=== PATIENT | male | born 1940 | race Caucasian/White ===

== ENCOUNTER 2016-05-24 10:24 | Inpatient (IN) | payer OTHER ==
[~2016-05-24] VITALS: Ht 170.2 cm; Wt 79.1 kg
[~2016-05-24 10:24] MED LIST: AMLODIPINE BESY10 MG PO; ASPIRIN EC325 MG PO; DOCUSATE SODIU100 MG PO; DUONEB 2.5-0.5 M3 ML AEROSOL; ERGOCALCIF50000 UNIT PO; HYDROCODON-ACE1 EAC7 PO; KEFLEX500 MG PO; LEVOFLOXACIN750 MG PO; MYCOSTATIN 100,60 ML PO; NEURONTIN100 MG PO; NICOTINE PATCH1 EAC2 TD; NORVASC5 MG PO; PERCOCET 5/31 TABLET PO; PRAVASTATIN SOD20 MG PO; PROAIR HFA8.5 GM IH; TRANSDERM-SCO1 PATCH TD; VITAMIN D32000 UNI1 GT; ZOFRAN4 MG PO
[2016-05-24 10:51] LABS: BASE EXCESS 0.4 mEq/L (-3 to +3); BICARBONATE 23.1 mEq/L (22-26); PCO2 31 mm Hg (35-45); PO2 176 mm Hg (80-100); pH 7.48 (7.35-7.45)
[2016-05-24 10:52] LABS: COMMENTS - BLOOD GASES A+C+; DEVICE NRB; O2 FLOW 15 L/MIN; SITE LR; TOTAL RESP RATE 30 resp/min
[2016-05-24 10:55] LABS: MEAN PLAT.VOLUME 11.7 uM^3 (9.0-12.4); PLATELET COUNT 200 K/uL (156-360)
[2016-05-24 11:10] LABS: CHLORIDE 98 mEq/L (99-109); POTASSIUM 3.5 mEq/L (3.7-5.4); SODIUM 137 mEq/L (136-147)
[2016-05-24 11:12] LABS: GLUCOSE 149 mg/dL (70-99)
[2016-05-24 11:13] LABS: ANION GAP 14 MEQ/L (2-14)
[2016-05-24 11:14] LABS: TOTAL BILIRUBIN 0.5 mg/dL (0.0-1.0)
[2016-05-24 11:15] LABS: ALKALINE PHOSPHATASE 130 IU/L (3-129)
[2016-05-24 11:16] LABS: GFR ESTIMATE (CALCULATED) 23 mL/min/
[2016-05-24 11:17] LABS: UREA NITROGEN (BUN) 71 mg/dL (9-23)
[2016-05-24 11:19] LABS: TROP-I INTERPRETATION NEGATIVE; TROPONIN-I 0.05 ng/mL (0.0-0.30)
[2016-05-24 12:03] LABS: EOSINOPHIL (%) 0 % (0-5); HEMATOCRIT 39.1 % (38.0-50.0); IMMATURE GRANULOCYTE (%) 0.3 % (0.0-0.7); LYMPHOCYTE COUNT 18.7 K/uL (1.0-2.8); MCHC 32.7 G/DL (30.0-36.0); MCV 91.8 FL (86-99); MONOCYTE (%) 2.2 % (3-12); MONOCYTE COUNT 0.8 K/uL (0-0.8); NEUTROPHIL (%) 44.5 % (45-76); NEUTROPHIL COUNT 15.7 K/uL (1.8-6.4); RBC DIS.WIDTH-CV 13.7 % (11.8-14.6); RBC DIS.WIDTH-SD 44.9 % (39-53); RED BLOOD COUNT 4.26 M/uL (4.00-5.50); WHITE BLOOD COUNT 33.1 K/uL (4.1-10.2)
[2016-05-24] MEDS ORDERED: COUGH SYRU100 MG/5 M GT (12:28)
[2016-05-24] MEDS ORDERED: HYDRALAZINE HCL25 MG GT (12:30)
[2016-05-24] MEDS ORDERED: CLONIDINE HCL0.1 MG GT (12:31)
[2016-05-24] MEDS ORDERED: ASPIRIN325 MG GT (12:32)
[2016-05-24] MEDS ORDERED: METOCLOPRAM5 MG/5 ML GT (12:32)
[2016-05-24] MEDS ORDERED: CARVEDILOL25 MG GT (12:33)
[2016-05-24] MEDS ORDERED: MIRALAX255 GM GT (12:34)
[2016-05-24] MEDS ORDERED: SENNA8.6 MG GT (12:35)
[2016-05-24] MEDS ORDERED: HEPARIN SO5000 UNITS SC (12:36)
[2016-05-24] MEDS ORDERED: CITALOPRAM HBR20 MG GT (12:37)
[2016-05-24] MEDS ORDERED: VITAMIN D-32000 UNI2 GT (12:37)
[2016-05-24] MEDS ORDERED: ACETAMINOP160 MG/51 GT (12:38)
[2016-05-24] MEDS ORDERED: ATROVENT 00.5 MG/2.5 IH (12:39)
[2016-05-24] MEDS ORDERED: ALBUTEROL2.5 MG/3 M IH (12:39)
[2016-05-24] MEDS ORDERED: PROMETHAZINE HC25 MG PR (12:40)
[2016-05-24] MEDS ORDERED: MILK OF MAGN GT (12:41)
[2016-05-24] MEDS ORDERED: FLEET ENEMA-AD118 ML PR (12:42)
[2016-05-24] MEDS ORDERED: DULCOLAX10 MG PR (12:42)
[2016-05-24 13:45] LABS: EOSINOPHIL (%) 0 % (0-5); IMMATURE GRANULOCYTE (%) 0.2 % (0.0-0.7); IMMATURE GRANULOCYTE COUNT 0.6 K/uL; LYMPHOCYTE COUNT 14.6 K/uL (1.0-2.8); MEAN PLAT.VOLUME 11.7 uM^3 (9.0-12.4); MONOCYTE (%) 3.3 % (3-12); NEUTROPHIL (%) 48.2 % (45-76); NEUTROPHIL COUNT 14.6 K/uL (1.8-6.4); PLATELET COUNT 172 K/uL (156-360)
[2016-05-24 13:46] LABS: HEMATOCRIT 37.8 % (38.0-50.0); MCH 30.3 PG (29.0-34.0); MCHC 33.3 G/DL (30.0-36.0); MCV 90.9 FL (86-99); RBC DIS.WIDTH-CV 13.6 % (11.8-14.6); RBC DIS.WIDTH-SD 43.3 % (39-53); RED BLOOD COUNT 4.16 M/uL (4.00-5.50); WHITE BLOOD COUNT 30.3 K/uL (4.1-10.2)
[2016-05-24 13:57] LABS: CHLORIDE 101 mEq/L (99-109); POTASSIUM 3.6 mEq/L (3.7-5.4); SODIUM 138 mEq/L (136-147)
[2016-05-24 13:58] LABS: GLUCOSE 123 mg/dL (70-99)
[2016-05-24 14:00] LABS: ANION GAP 15 MEQ/L (2-14)
[2016-05-24 14:02] LABS: GFR ESTIMATE (CALCULATED) 24 mL/min/
[2016-05-24 14:03] LABS: UREA NITROGEN (BUN) 71 mg/dL (9-23)
[2016-05-24 15:35] VITALS: BP 183/85
[2016-05-24 16:36] VITALS: BP 183/85
[2016-05-24 16:42] LABS: ABS NEUTROPHIL COUNT 13.42; ANISOCYTOSIS 1+; BAND NEUTROPHILS 0.5 % (0-8.0); MACROCYTES OCC; PLAT.SUFFICIENCY ADEQUATE
[2016-05-24 19:00] VITALS: BP 160/70
[2016-05-25 00:25] VITALS: BP 140/60
[2016-05-25 04:00] VITALS: BP 146/65
[2016-05-25 05:28] LABS: METH RESISTANT S AUREUS PCR POSITIVE (NEGATIVE)
[2016-05-25 05:29] LABS: PROBE CHECK PASS
[2016-05-25 07:13] LABS: EOSINOPHIL (%) 0 % (0-5); HEMATOCRIT 30.8 % (38.0-50.0); IMMATURE GRANULOCYTE (%) 0.1 % (0.0-0.7); LYMPHOCYTE COUNT 8.8 K/uL (1.0-2.8); MCH 29.9 PG (29.0-34.0); MCHC 32.5 G/DL (30.0-36.0); MCV 91.9 FL (86-99); MONOCYTE (%) 0.8 % (3-12); MONOCYTE COUNT 0.1 K/uL (0-0.8); NEUTROPHIL (%) 47.9 % (45-76); NEUTROPHIL COUNT 8.3 K/uL (1.8-6.4); PLATELET COUNT 140 K/uL (156-360); RED BLOOD COUNT 3.35 M/uL (4.00-5.50)
[2016-05-25 07:14] LABS: WHITE BLOOD COUNT 17.2 K/uL (4.1-10.2)
[2016-05-25 07:32] LABS: ANION GAP 11 MEQ/L (2-14); CHLORIDE 99 MEQ/L (99-109); GFR ESTIMATE (CALCULATED) 23 mL/min/; GLUCOSE 148 mg/dL (70-99); POTASSIUM 3.9 MEQ/L (3.7-5.4); SAMPLE HEMOLYSIS CHECK 0; SAMPLE ICTERIC CHECK 0; SAMPLE LIPEMIA CHECK 0; SODIUM 135 MEQ/L (136-147); UREA NITROGEN (BUN) 71 mg/dL (9-23)
[2016-05-25 08:20] VITALS: BP 138/93
[2016-05-25 12:05] VITALS: BP 183/79
[2016-05-25 16:15] VITALS: BP 148/64
[2016-05-25 16:38] LABS: BASE EXCESS -1.4 mEq/L (-3 to +3); BICARBONATE 22.6 mEq/L (22-26); CARBOXY HGB 1.6 % (0-5); COMMENTS - BLOOD GASES C+A-N/A; DEVICE NASAL CANNULA; METHEMOGLOBIN 1.9 % (0-1.5); O2 FLOW 6 L/MIN; PCO2 34 mm Hg (35-45); PO2 49 mm Hg (80-100); SITE RR; TOTAL RESP RATE 22 resp/min; pH 7.43 (7.35-7.45)
[2016-05-25 19:30] VITALS: BP 151/67
[2016-05-26 00:25] VITALS: BP 138/60
[2016-05-26 03:48] VITALS: BP 156/65
[2016-05-26 06:57] LABS: EOSINOPHIL (%) 0 % (0-5); HEMATOCRIT 28.5 % (38.0-50.0); IMMATURE GRANULOCYTE (%) 0.3 % (0.0-0.7); IMMATURE GRANULOCYTE COUNT 0.1 K/uL; MCH 30.1 PG (29.0-34.0); MCV 91.3 FL (86-99); MEAN PLAT.VOLUME 11.8 uM^3 (9.0-12.4); MONOCYTE (%) 1.5 % (3-12); MONOCYTE COUNT 0.3 K/uL (0-0.8); NEUTROPHIL COUNT 7.8 K/uL (1.8-6.4); PLATELET COUNT 160 K/uL (156-360); RBC DIS.WIDTH-SD 46.5 % (39-53); RED BLOOD COUNT 3.12 M/uL (4.00-5.50); WHITE BLOOD COUNT 18.1 K/uL (4.1-10.2)
[2016-05-26 09:00] VITALS: BP 132/66
[2016-05-26 09:51] LABS: BASE EXCESS -3.7 mEq/L (-3 to +3); BICARBONATE 20.3 mEq/L (22-26); CARBOXY HGB 1.4 % (0-5); METHEMOGLOBIN 1.8 % (0-1.5); PO2 50 mm Hg (80-100)
[2016-05-26 09:52] LABS: COMMENTS - BLOOD GASES C+A-N/A; SITE LR
[2016-05-26 09:59] LABS: DEVICE ROOM AIR; FI02 21 %
[2016-05-26 10:00] LABS: PCO2 32 mm Hg (35-45); TOTAL RESP RATE 24 resp/min; pH 7.41 (7.35-7.45)
[2016-05-26 12:11] VITALS: BP 120/65
[2016-05-26 16:09] VITALS: BP 160/60
[2016-05-26 23:18] VITALS: BP 186/88
[2016-05-27 07:38] LABS: EOSINOPHIL (%) 0 % (0-5); IMMATURE GRANULOCYTE (%) 0.4 % (0.0-0.7); IMMATURE GRANULOCYTE COUNT 0.1 K/uL; LYMPHOCYTE COUNT 16.9 K/uL (1.0-2.8); MCH 30.4 PG (29.0-34.0); MCHC 32.9 G/DL (30.0-36.0); MCV 92.1 FL (86-99); MEAN PLAT.VOLUME 11.7 uM^3 (9.0-12.4); MONOCYTE (%) 0.7 % (3-12); MONOCYTE COUNT 0.2 K/uL (0-0.8); NEUTROPHIL (%) 37.6 % (45-76); NEUTROPHIL COUNT 10.4 K/uL (1.8-6.4); PLATELET COUNT 184 K/uL (156-360); RBC DIS.WIDTH-SD 46.5 % (39-53); RED BLOOD COUNT 3.69 M/uL (4.00-5.50)
[2016-05-27 07:41] LABS: WHITE BLOOD COUNT 27.6 K/uL (4.1-10.2)
[2016-05-27 07:57] LABS: ANION GAP 12 MEQ/L (2-14); CHLORIDE 102 MEQ/L (99-109); GFR ESTIMATE (CALCULATED) 25 mL/min/; GLUCOSE 161 mg/dL (70-99); POTASSIUM 3.7 MEQ/L (3.7-5.4); SAMPLE HEMOLYSIS CHECK 0; SAMPLE ICTERIC CHECK 0; SAMPLE LIPEMIA CHECK 0; SODIUM 133 MEQ/L (136-147); UREA NITROGEN (BUN) 68 mg/dL (9-23)
[2016-05-27 08:19] VITALS: BP 137/99
[2016-05-27 13:12] LABS: TROP-I INTERPRETATION NEGATIVE; TROPONIN-I 0.06 ng/mL (0.0-0.30)
[2016-05-27 16:52] VITALS: BP 142/82
[2016-05-27 16:54] VITALS: BP 208/98
[2016-05-27 22:51] VITALS: BP 190/95
[2016-05-28 08:35] VITALS: BP 156/84
[2016-05-28 16:01] VITALS: BP 192/74
[2016-05-28 17:09] VITALS: BP 174/78
[2016-05-28 23:03] VITALS: BP 178/82
[2016-05-29 07:11] LABS: HEMATOCRIT 27.3 % (38.0-50.0); MCH 31.1 PG (29.0-34.0); MCHC 34.1 G/DL (30.0-36.0); MCV 91.3 FL (86-99); MEAN PLAT.VOLUME 11.2 uM^3 (9.0-12.4); PLATELET COUNT 159 K/uL (156-360); RBC DIS.WIDTH-SD 46.6 % (39-53); RED BLOOD COUNT 2.99 M/uL (4.00-5.50); WHITE BLOOD COUNT 20.2 K/uL (4.1-10.2)
[2016-05-29 07:32] LABS: EOSINOPHIL (%) 0 % (0-5); IMMATURE GRANULOCYTE (%) 0.2 % (0.0-0.7); LYMPHOCYTE COUNT 12.9 K/uL (1.0-2.8); MONOCYTE (%) 3.5 % (3-12); MONOCYTE COUNT 0.7 K/uL (0-0.8); NEUTROPHIL (%) 32.3 % (45-76); NEUTROPHIL COUNT 6.5 K/uL (1.8-6.4)
[2016-05-29 07:38] LABS: ANION GAP 7 MEQ/L (2-14); CHLORIDE 106 MEQ/L (99-109); GFR ESTIMATE (CALCULATED) 28 mL/min/; POTASSIUM 3.3 MEQ/L (3.7-5.4); SAMPLE HEMOLYSIS CHECK 0; SAMPLE ICTERIC CHECK 0; SAMPLE LIPEMIA CHECK 0; SODIUM 135 MEQ/L (136-147); UREA NITROGEN (BUN) 56 mg/dL (9-23)
[2016-05-29 07:40] LABS: GLUCOSE 99 mg/dL (70-99)
[2016-05-29 18:33] VITALS: BP 165/74
[2016-05-29 23:06] VITALS: BP 176/77
[2016-05-30 08:44] LABS: ANION GAP 6 MEQ/L (2-14); CHLORIDE 110 MEQ/L (99-109); GFR ESTIMATE (CALCULATED) 29 mL/min/; GLUCOSE 84 mg/dL (70-99); POTASSIUM 3.6 MEQ/L (3.7-5.4); SAMPLE HEMOLYSIS CHECK 0; SAMPLE ICTERIC CHECK 0; SAMPLE LIPEMIA CHECK 0; SODIUM 140 MEQ/L (136-147); UREA NITROGEN (BUN) 48 mg/dL (9-23)
[2016-05-30 09:04] VITALS: BP 172/83
[2016-05-30 17:55] VITALS: BP 185/82
[2016-05-31 00:53] VITALS: BP 101/75
[2016-05-31 04:00] VITALS: BP 122/78
[2016-05-31 07:55] LABS: NRBC (%) 0.1 /100 WBC (0-0)
[2016-05-31 08:21] LABS: ANION GAP 6 MEQ/L (2-14); CHLORIDE 108 MEQ/L (99-109); EOSINOPHIL (%) 0.4 % (0-5); EOSINOPHIL COUNT 0.1 K/uL (0-0.3); GFR ESTIMATE (CALCULATED) 31 mL/min/; GLUCOSE 96 mg/dL (70-99); HEMATOCRIT 29.8 % (38.0-50.0); IMMATURE GRANULOCYTE (%) 0.4 % (0.0-0.7); IMMATURE GRANULOCYTE COUNT 0.1 K/uL; LYMPHOCYTE COUNT 16.6 K/uL (1.0-2.8); MCH 30.9 PG (29.0-34.0); MCHC 33.6 G/DL (30.0-36.0); MONOCYTE (%) 2.4 % (3-12); MONOCYTE COUNT 0.7 K/uL (0-0.8); NEUTROPHIL (%) 34.9 % (45-76); NEUTROPHIL COUNT 9.3 K/uL (1.8-6.4); PLATELET COUNT 185 K/uL (156-360); POTASSIUM 3.6 MEQ/L (3.7-5.4); RBC DIS.WIDTH-CV 13.9 % (11.8-14.6); RBC DIS.WIDTH-SD 46.3 % (39-53); RED BLOOD COUNT 3.24 M/uL (4.00-5.50); SAMPLE HEMOLYSIS CHECK 0; SAMPLE ICTERIC CHECK 0; SAMPLE LIPEMIA CHECK 0; SODIUM 138 MEQ/L (136-147); UREA NITROGEN (BUN) 42 mg/dL (9-23)
[2016-05-31 08:24] LABS: WHITE BLOOD COUNT 26.8 K/uL (4.1-10.2)
[2016-05-31 08:41] VITALS: BP 178/77
[2016-05-31 12:59] VITALS: BP 153/86
[2016-05-31 21:19] VITALS: BP 128/56
[2016-06-01 00:32] VITALS: BP 125/64
[2016-06-01 04:38] VITALS: BP 120/51
[2016-06-01 06:37] LABS: MEAN PLAT.VOLUME 11.7 uM^3 (9.0-12.4); PLATELET COUNT 212 K/uL (156-360)
[2016-06-01 06:52] LABS: HEMATOCRIT 30.9 % (38.0-50.0); MCH 30.5 PG (29.0-34.0); MCV 92.5 FL (86-99); RBC DIS.WIDTH-SD 46.7 % (39-53); RED BLOOD COUNT 3.34 M/uL (4.00-5.50); WHITE BLOOD COUNT 27.2 K/uL (4.1-10.2)
[2016-06-01 06:55] LABS: DELETE MACHINE DIFF? YES
[2016-06-01 07:00] LABS: ANION GAP 9 MEQ/L (2-14); CHLORIDE 104 MEQ/L (99-109); GFR ESTIMATE (CALCULATED) 31 mL/min/; GLUCOSE 79 mg/dL (70-99); POTASSIUM 3.5 MEQ/L (3.7-5.4); SAMPLE HEMOLYSIS CHECK 0; SAMPLE ICTERIC CHECK 0; SAMPLE LIPEMIA CHECK 0; SODIUM 139 MEQ/L (136-147); UREA NITROGEN (BUN) 40 mg/dL (9-23)
[2016-06-01 07:59] LABS: ABS NEUTROPHIL COUNT 7.19; ANISOCYTOSIS 1+; BAND NEUTROPHILS 0.5 % (0-8.0); HYPOCHROMASIA 3+; MACROCYTES OCC; MICROCYTOSIS OCC; MYELOCYTES 0.5 %; PLAT.SUFFICIENCY ADEQUATE; TEAR DROP CELLS OCC; USER ID TLW
[2016-06-01 08:37] VITALS: BP 152/78
[2016-06-01 17:16] VITALS: BP 160/68
[2016-06-01 20:11] VITALS: BP 202/98
[2016-06-02 00:02] VITALS: BP 162/85
[2016-06-02 02:43] VITALS: BP 161/82
[2016-06-02 07:06] LABS: EOSINOPHIL (%) 0.2 % (0-5); EOSINOPHIL COUNT 0.1 K/uL (0-0.3); IMMATURE GRANULOCYTE (%) 0.4 % (0.0-0.7); IMMATURE GRANULOCYTE COUNT 0.1 K/uL; LYMPHOCYTE COUNT 18.8 K/uL (1.0-2.8); MEAN PLAT.VOLUME 11.6 uM^3 (9.0-12.4); MONOCYTE (%) 1.7 % (3-12); MONOCYTE COUNT 0.5 K/uL (0-0.8); NEUTROPHIL (%) 37.6 % (45-76); NEUTROPHIL COUNT 11.8 K/uL (1.8-6.4); PLATELET COUNT 208 K/uL (156-360)
[2016-06-02 07:15] LABS: HEMATOCRIT 28.8 % (38.0-50.0); MCH 31.3 PG (29.0-34.0); RBC DIS.WIDTH-CV 14.2 % (11.8-14.6); RBC DIS.WIDTH-SD 46.6 % (39-53); RED BLOOD COUNT 3.13 M/uL (4.00-5.50)
[2016-06-02 07:16] LABS: WHITE BLOOD COUNT 31.3 K/uL (4.1-10.2)
[2016-06-02 07:30] LABS: ANION GAP 9 MEQ/L (2-14); CHLORIDE 102 MEQ/L (99-109); GFR ESTIMATE (CALCULATED) 29 mL/min/; POTASSIUM 3.5 MEQ/L (3.7-5.4); SAMPLE HEMOLYSIS CHECK 0; SAMPLE ICTERIC CHECK 0; SAMPLE LIPEMIA CHECK 0; SODIUM 138 MEQ/L (136-147); UREA NITROGEN (BUN) 39 mg/dL (9-23)
[2016-06-02 07:31] LABS: GLUCOSE 144 mg/dL (70-99)
[2016-06-02 08:34] VITALS: BP 185/88
[2016-06-02 16:28] VITALS: BP 186/83
[2016-06-02 23:14] VITALS: BP 177/90
[2016-06-03 07:33] LABS: ANION GAP 5 MEQ/L (2-14); CHLORIDE 101 MEQ/L (99-109); GFR ESTIMATE (CALCULATED) 29 mL/min/; GLUCOSE 117 mg/dL (70-99); POTASSIUM 3.4 MEQ/L (3.7-5.4); SAMPLE HEMOLYSIS CHECK 0; SAMPLE ICTERIC CHECK 0; SAMPLE LIPEMIA CHECK 0; SODIUM 137 MEQ/L (136-147); UREA NITROGEN (BUN) 43 mg/dL (9-23)
[2016-06-03 07:38] LABS: EOSINOPHIL (%) 0.2 % (0-5); HEMATOCRIT 26.9 % (38.0-50.0); IMMATURE GRANULOCYTE (%) 0.3 % (0.0-0.7); IMMATURE GRANULOCYTE COUNT 0.1 K/uL; LYMPHOCYTE COUNT 11.5 K/uL (1.0-2.8); MCH 30.4 PG (29.0-34.0); MCHC 32.7 G/DL (30.0-36.0); MCV 93.1 FL (86-99); MEAN PLAT.VOLUME 11.4 uM^3 (9.0-12.4); MONOCYTE (%) 2.3 % (3-12); MONOCYTE COUNT 0.4 K/uL (0-0.8); NEUTROPHIL (%) 33.1 % (45-76); NEUTROPHIL COUNT 5.9 K/uL (1.8-6.4); PLATELET COUNT 175 K/uL (156-360); RBC DIS.WIDTH-CV 14.1 % (11.8-14.6); RBC DIS.WIDTH-SD 47.5 % (39-53); RED BLOOD COUNT 2.89 M/uL (4.00-5.50)
[2016-06-03 07:40] LABS: WHITE BLOOD COUNT 17.9 K/uL (4.1-10.2)
[2016-06-03 08:18] VITALS: BP 136/72
[2016-06-03 16:27] VITALS: BP 126/78
[2016-06-04] VITALS: BP 170/70
[2016-06-04 07:33] LABS: ANION GAP 5 MEQ/L (2-14); CHLORIDE 106 MEQ/L (99-109); GFR ESTIMATE (CALCULATED) 31 mL/min/; GLUCOSE 131 mg/dL (70-99); POTASSIUM 4.2 MEQ/L (3.7-5.4); SAMPLE HEMOLYSIS CHECK 0; SAMPLE ICTERIC CHECK 0; SAMPLE LIPEMIA CHECK 0; SODIUM 141 MEQ/L (136-147); UREA NITROGEN (BUN) 43 mg/dL (9-23)
[2016-06-04 08:00] VITALS: BP 122/52
[2016-06-04 12:48] LABS: HEMATOCRIT 27.4 % (38.0-50.0); MCHC 31.8 G/DL (30.0-36.0); MCV 94.5 FL (86-99); MEAN PLAT.VOLUME 11.4 uM^3 (9.0-12.4); PLATELET COUNT 178 K/uL (156-360); RBC DIS.WIDTH-CV 14.5 % (11.8-14.6); RBC DIS.WIDTH-SD 49.7 % (39-53); WHITE BLOOD COUNT 18.6 K/uL (4.1-10.2)
[2016-06-04 13:27] LABS: ABS NEUTROPHIL COUNT 10.78; EOSINOPHIL ABS CT 0.19; PLAT.SUFFICIENCY ADEQUATE; USER ID STC
[2016-06-04 13:28] LABS: DELETE MACHINE DIFF? YES
[2016-06-04 14:34] VITALS: BP 138/72
[2016-06-04 17:07] VITALS: BP 118/54
[2016-06-05 00:24] VITALS: BP 148/94
[2016-06-05 07:27] LABS: EOSINOPHIL (%) 0.3 % (0-5); EOSINOPHIL COUNT 0.1 K/uL (0-0.3); HEMATOCRIT 27.8 % (38.0-50.0); IMMATURE GRANULOCYTE (%) 0.2 % (0.0-0.7); LYMPHOCYTE COUNT 11.2 K/uL (1.0-2.8); MCHC 31.7 G/DL (30.0-36.0); MCV 94.9 FL (86-99); MEAN PLAT.VOLUME 11.5 uM^3 (9.0-12.4); MONOCYTE (%) 2.1 % (3-12); MONOCYTE COUNT 0.4 K/uL (0-0.8); NEUTROPHIL (%) 39.4 % (45-76); NEUTROPHIL COUNT 7.7 K/uL (1.8-6.4); PLATELET COUNT 165 K/uL (156-360); RBC DIS.WIDTH-CV 14.6 % (11.8-14.6); RBC DIS.WIDTH-SD 50.1 % (39-53); RED BLOOD COUNT 2.93 M/uL (4.00-5.50); WHITE BLOOD COUNT 19.4 K/uL (4.1-10.2)
[2016-06-05 07:45] VITALS: BP 144/101
[2016-06-05 07:46] LABS: ANION GAP 6 MEQ/L (2-14); CHLORIDE 106 MEQ/L (99-109); GFR ESTIMATE (CALCULATED) 33 mL/min/; GLUCOSE 119 mg/dL (70-99); POTASSIUM 4.1 MEQ/L (3.7-5.4); SAMPLE HEMOLYSIS CHECK 0; SAMPLE ICTERIC CHECK 0; SAMPLE LIPEMIA CHECK 0; SODIUM 140 MEQ/L (136-147); UREA NITROGEN (BUN) 43 mg/dL (9-23)
[2016-06-05 15:46] VITALS: BP 158/82
[2016-06-06 00:15] VITALS: BP 138/75
[2016-06-06 07:41] LABS: EOSINOPHIL (%) 0.3 % (0-5); EOSINOPHIL COUNT 0.1 K/uL (0-0.3); HEMATOCRIT 26.3 % (38.0-50.0); IMMATURE GRANULOCYTE (%) 0.3 % (0.0-0.7); IMMATURE GRANULOCYTE COUNT 0.1 K/uL; MCH 30.5 PG (29.0-34.0); MCHC 32.3 G/DL (30.0-36.0); MCV 94.3 FL (86-99); MEAN PLAT.VOLUME 11.2 uM^3 (9.0-12.4); MONOCYTE COUNT 0.5 K/uL (0-0.8); NEUTROPHIL (%) 36.1 % (45-76); NEUTROPHIL COUNT 6.6 K/uL (1.8-6.4); PLATELET COUNT 142 K/uL (156-360); RBC DIS.WIDTH-CV 14.5 % (11.8-14.6); RBC DIS.WIDTH-SD 49.6 % (39-53); RED BLOOD COUNT 2.79 M/uL (4.00-5.50); WHITE BLOOD COUNT 18.2 K/uL (4.1-10.2)
[2016-06-06 07:47] VITALS: BP 150/60
[2016-06-06 08:14] LABS: ANION GAP 3 MEQ/L (2-14); CHLORIDE 104 MEQ/L (99-109); GFR ESTIMATE (CALCULATED) 31 mL/min/; GLUCOSE 87 mg/dL (70-99); POTASSIUM 4.3 MEQ/L (3.7-5.4); SAMPLE HEMOLYSIS CHECK 0; SAMPLE ICTERIC CHECK 0; SAMPLE LIPEMIA CHECK 0; SODIUM 137 MEQ/L (136-147); UREA NITROGEN (BUN) 41 mg/dL (9-23)
[2016-06-06 15:23] VITALS: BP 180/73
[2016-06-06 22:58] VITALS: BP 146/61
[2016-06-07 07:33] VITALS: BP 188/68
[2016-06-07 09:20] VITALS: BP 130/58
[2016-06-07 09:38] LABS: EOSINOPHIL (%) 0.4 % (0-5); EOSINOPHIL COUNT 0.1 K/uL (0-0.3); IMMATURE GRANULOCYTE (%) 0.3 % (0.0-0.7); IMMATURE GRANULOCYTE COUNT 0.1 K/uL; LYMPHOCYTE COUNT 10.3 K/uL (1.0-2.8); MCH 30.1 PG (29.0-34.0); MCHC 31.9 G/DL (30.0-36.0); MCV 94.4 FL (86-99); MEAN PLAT.VOLUME 11.2 uM^3 (9.0-12.4); MONOCYTE (%) 1.9 % (3-12); MONOCYTE COUNT 0.4 K/uL (0-0.8); NEUTROPHIL (%) 40.5 % (45-76); NEUTROPHIL COUNT 7.4 K/uL (1.8-6.4); PLATELET COUNT 143 K/uL (156-360); RBC DIS.WIDTH-CV 14.5 % (11.8-14.6); RED BLOOD COUNT 2.86 M/uL (4.00-5.50); WHITE BLOOD COUNT 18.2 K/uL (4.1-10.2)
[2016-06-07 09:54] LABS: ANION GAP 6 MEQ/L (2-14); CHLORIDE 97 MEQ/L (99-109); SAMPLE HEMOLYSIS CHECK 0; SAMPLE ICTERIC CHECK 0; SAMPLE LIPEMIA CHECK 0; SODIUM 133 MEQ/L (136-147)
[2016-06-07 10:00] LABS: GFR ESTIMATE (CALCULATED) 29 mL/min/; GLUCOSE 125 mg/dL (70-99); UREA NITROGEN (BUN) 42 mg/dL (9-23)
[2016-06-07 15:14] VITALS: BP 130/62
[2016-06-07 22:53] VITALS: BP 140/60
[2016-06-08 07:51] LABS: EOSINOPHIL (%) 0.6 % (0-5); EOSINOPHIL COUNT 0.1 K/uL (0-0.3); HEMATOCRIT 27.2 % (38.0-50.0); IMMATURE GRANULOCYTE (%) 0.3 % (0.0-0.7); IMMATURE GRANULOCYTE COUNT 0.1 K/uL; LYMPHOCYTE COUNT 12.5 K/uL (1.0-2.8); MCH 29.9 PG (29.0-34.0); MCV 93.5 FL (86-99); MONOCYTE (%) 2.2 % (3-12); MONOCYTE COUNT 0.4 K/uL (0-0.8); NEUTROPHIL (%) 34.3 % (45-76); NEUTROPHIL COUNT 6.9 K/uL (1.8-6.4); PLATELET COUNT 138 K/uL (156-360); RBC DIS.WIDTH-CV 14.6 % (11.8-14.6); RBC DIS.WIDTH-SD 49.9 % (39-53); RED BLOOD COUNT 2.91 M/uL (4.00-5.50); WHITE BLOOD COUNT 19.9 K/uL (4.1-10.2)
[2016-06-08 08:36] VITALS: BP 164/82
[2016-06-08 08:40] LABS: ANION GAP 8 MEQ/L (2-14); CHLORIDE 97 MEQ/L (99-109); GFR ESTIMATE (CALCULATED) 31 mL/min/; GLUCOSE 120 mg/dL (70-99); POTASSIUM 4.6 MEQ/L (3.7-5.4); SAMPLE HEMOLYSIS CHECK 2; SAMPLE ICTERIC CHECK 0; SAMPLE LIPEMIA CHECK 0; SODIUM 136 MEQ/L (136-147); UREA NITROGEN (BUN) 43 mg/dL (9-23)
[2016-06-08] MEDS ORDERED: PREVACID SOLUTA30 MG GT (12:18)
[2016-06-08] MEDS ORDERED: METOCLOPRAM5 MG/5 ML GT (12:18)
[2016-06-08] MEDS ORDERED: PREDNISONE1 MG/ML GT (12:18)
[2016-06-08] MEDS ORDERED: NIZORAL 2% CREA15 GM TP (12:19)
== END 2016-06-08 15:33 | DRG 178 ==
LOC: EME 10:24 → 4EAST 12:13 → EDOF 12:13 → 4EAST 15:09 → 5EAST 05-26 20:07
PROVIDERS: Emergency Medicine; Family Medicine; Internal Medicine Pulmonary Disease
DX: J69.0 Pneumonitis due to inhalation of food and vomit (principal); J44.1 Chronic obstructive pulmonary disease with (acute) exacerbation; C91.10 Chronic lymphocytic leukemia of B-cell type not having achieved remission; I69.359 Hemiplegia and hemiparesis following cerebral infarction affecting unspecified side; R09.02 Hypoxemia; K31.84 Gastroparesis; I69.991 Dysphagia following unspecified cerebrovascular disease; I69.320 Aphasia following cerebral infarction; R41.0 Disorientation, unspecified; F03.90 Unspecified dementia, unspecified severity, without behavioral disturbance, psychotic disturbance, mood disturbance, and anxiety; I12.9 Hypertensive chronic kidney disease with stage 1 through stage 4 chronic kidney disease, or unspecified chronic kidney disease; N18.3 Chronic kidney disease, stage 3 (moderate); D63.1 Anemia in chronic kidney disease; E78.5 Hyperlipidemia, unspecified; Z93.1 Gastrostomy status; Z87.891 Personal history of nicotine dependence; Z85.828 Personal history of other malignant neoplasm of skin
CPT/HCPCS: 36600; 71010; 80048; 80048 91; 80053; 80202; 82565; 82803; 83605; 83880; 84484; 85025; 85025 91; 87040; 87077; 87081; 87186; 87641; 87801; 93005; 94640; 94640 76; 94799; 99202; 99281; 99285; C9113; J1650; J1940; J2543; J2765; J2920; J2930; J3370; J7050; J7512